=== PATIENT | female | born 1995 | race Caucasian/White ===

== ENCOUNTER 2021-03-23 18:33 | Observation (INO) | payer OTHER, SELFPAY ==
[2021-03-23 19:00] VITALS: BP 117/86; PULSE 72
[2021-03-23 19:02] VITALS: BMI 29.5
--- NOTE | 2021-03-23 19:03 | OBADM ---
This patient, Roberta Deal, admitted to the OB room OB Post 116 for observation. Patient/family oriented to hospital policies and general routines including ID bracelet, bed and alarms, visiting hours, pain management, procedures, bathroom and other care routines, personal items, smoking policy, room service/diet, and visiting hours. Patient/Family are encouraged to report perceived risks to care and to ask questions if they do not understand what they are told or what they should do.
--- NOTE | 2021-03-27 09:58 | PM.OBTRLD ---
OB - Triage/Final Diagnosis Visit Information Reason for evaluation: decreased movement Comments/Additional reasons for admission: I have assessed the risk for this patient, Roberta Deal, and determined that she would benefit from observation care.
== END 2021-03-23 19:53 | disposition home or self-care (01) ==
PROVIDERS: Admitting Provider Obstetrics & Gynecology Gynecology; Visit Provider Obstetrics & Gynecology Gynecology
DX: O36.8130 Decreased fetal movements, third trimester, not applicable or unspecified (principal); Z3A.34 34 weeks gestation of pregnancy
CPT/HCPCS: 59025; G0378; G0379

== ENCOUNTER 2021-04-19 18:22 | Inpatient (IN) | payer OTHER, SELFPAY ==
[2021-04-19] VITALS (10 sets, daily range): BP systolic 111–133; BP diastolic 73–89; PULSE 62–85; TEMP 36.4; BMI 31.0
[2021-04-19 19:25] LABS: Basophils Percent Auto 0.3 % (0.2-1.2); Hematocrit 34.2 % (37.0-47.0); Hemoglobin 11.4 g/dL (12.0-15.0); Immature Granulocyte Absolute 0.05 K/mm3 (0.00-0.031); Immature Granulocyte Percent A 0.5 % (0-0.5); Lymphocytes Absolute Auto 3.07 K/mm3 (0.9-3.2); Lymphocytes Percent Auto 29.5 % (18.3-44.2); Mean Corpuscular HGB Conc 33.3 g/dl (32-36); Mean Corpuscular Hemoglobin 28.5 pg (26-34); Mean Corpuscular Volume 85.5 fl (80-100); Mean Platelet Volume 11.4 fl (7.4-10.4); Monocytes Absolute Auto 0.7 K/mm3 (0.1-0.6); Monocytes Percent Auto 6.6 % (2.6-8.5); Neutrophils Absolute Auto 6.6 K/mm3 (1.3-6.7); Neutrophils Percent Auto 63.1 % (45.5-73.1); Platelet Count Result 254 k/mm3 (150-375); Red Cell Distribution Width 13.7 % (11.5-14.5); White Blood Count 10.4 K/mm3 (4.5-10.0)
[2021-04-19] MEDS: LACTATED RINGERS 1,000 ML 125 ML IV CONT (19:38)
[2021-04-19] MEDS: OXYTOCIN 30 UNITS/NS 500 ML 30 UNITS/500 ML BAG 6 UNITS IV CONT (23:56)
[2021-04-20] VITALS (171 sets, daily range): BP systolic 88–165; BP diastolic 38–126; PULSE 37–240; RESP 18; TEMP 36.3–37.2; O2SAT 94–100
[2021-04-20] MEDS: LACTATED RINGERS 1,000 ML 125 ML IV CONT ×2 (05:10→09:11)
[2021-04-20 07:27] LABS: Rapid Plasma Reagin Non-Reactive (NonReactive)
--- NOTE | 2021-04-20 07:43 | WPDOBADMIT ---
Obstetrics - Admit Note Admission Note: record reviewed. No pertinent additions to the history and/or any subsequent changes in the physical findings that are not consistent with the expected course of the were found. Additions to the history and/or subsequent changes in the physical findings follow. Here in labor. 5/-2 AROM with clear fluid. FHTs reactive. Continue expectant mgmt
[2021-04-20] MEDS: fentaNYL CITRATE INJ (*CRX) 100 MCG/2 ML VIAL 50 MCG IV PUSH (08:12)
--- NOTE | 2021-04-20 08:19 | P.PNAN_ITS ---
Anes - Initial Pre Proc Eval Date/Time: 04/20/21 08:19 Surgeon: Sandra Muniz MD Pre Op Diagnosis: Laboring Patient Data Age: 25 Gender: F Height: 1.63 m Weight: 82 kg Last Vital Signs Temp 36.4 C 04/20/21 06:44 Pulse 67 04/20/21 08:16 BP 162/72 H 04/20/21 08:16 Allergies Allergy/AdvReac Type Severity Reaction Status Date / Time No Known Allergies Allergy Verified 03/31/21 13:39 Home Medications Medication Instructions Recorded Confirmed Type ergocalciferol (vitamin D2) 1 unit PO WEEKLY 03/23/21 03/23/21 History prenat.vits,matthew,alk-ihty-cbieo 1 tablet PO DAILY 03/23/21 03/23/21 History Laboratory Tests 04/19/21 04/19/21 04/19/21 19:21 19:21 19:21 WBC 10.4 K/mm3 H K/mm3 (4.5-10.0) RBC 4.00 M/mm3 L M/mm3 (4.2-5.4) Hgb 11.4 g/dL L g/dL (12.0-15.0) Hct 34.2 % L % (37.0-47.0) MCV 85.5 fl fl (80-100) MCH 28.5 pg pg (26-34) MCHC 33.3 g/dl g/dl (32-36) RDW 13.7 % % (11.5-14.5) Plt Count 254 k/mm3 k/mm3 (150-375) MPV 11.4 fl H fl (7.4-10.4) Immature Gran % (Auto) 0.5 % % (0-0.5) Neut % (Auto) 63.1 % % (45.5-73.1) Lymph % (Auto) 29.5 % % (18.3-44.2) [place] % (Auto) 6.6 % % (2.6-8.5) Eos % (Auto) 0.0 % % (0-4.4) Baso % (Auto) 0.3 % % (0.2-1.2) Lymph # (Auto) 3.07 K/mm3 K/mm3 (0.9-3.2) [place] # (Auto) 0.7 K/mm3 H K/mm3 (0.1-0.6) Eos # (Auto) 0.0 K/mm3 K/mm3 (0-0.3) Baso # (Auto) 0.0 K/mm3 K/mm3 (0.0-0.1) Abs Immat Gran (auto) 0.05 K/mm3 H K/mm3 (0.00-0.031) Absolute Neuts (auto) 6.6 K/mm3 K/mm3 (1.3-6.7) Absolute Nucleated RBC 0.0 K/mm3 K/mm3 (0.0-0.012) Nucleated RBC % 0.0 % % (0.0-0.2) RPR Non-reactive (NonReactive) Blood Type B Positive Antibody Screen Negative Patient hx anesthesia problems: none Family hx anesthesia problems: none PMFSH Family History Family History Other Unknown family medical history Social History Social History Smoking status: Never smoker Substance use: never Spiritual care concerns: No Anes - Eval Final PreProcedure Day of Procedure 04/20/21 08:19 Patient weight: obese ASA classification: II Anesthesia type and monitoring: regional epidural Informed Consent: The patient's anesthetic plan and its attendant risks and benefits were discussed with the patient/family/POA. Questions were solicited and answers provided to the satisfaction of the patient/family/POA.
[2021-04-20] MEDS: AMPICILLIN 2 GM/NS 100 ML 2 GM/100 ML BAG IVPB (11:55)
--- NOTE | 2021-04-20 15:14 | PM.OBPRVD ---
OB - Delivery Note Procedure Delivery date: 04/20/21 events: No Care Induction method: none Delivery augmentation: rupture of membranes Delivery monitor: external FHT and external uterine Route of delivery: Laceration Description: Perineal - 2nd Degree (LML) Delivery repair: vicryl (3-0 vicryl) Specimen: No Quantitative Blood Loss (ml): 100 Anesthesia type: Epidural Disposition: floor [place] Baby Date of : 04/20/21 Weeks of gestation at delivery: 39 Infant gender: Male presentation: vertex position: Right Occiput Anterior Placenta delivery description: Spontaneous cord vessel description: 3 Vessels score one minute: 9 score five minutes: 9
--- NOTE | 2021-04-20 15:16 | WPDOBADMIT ---
Obstetrics - Admit Note Admission Note: record reviewed. No pertinent additions to the history and/or any subsequent changes in the physical findings that are not consistent with the expected course of the were found. Additions to the history and/or subsequent changes in the physical findings follow. Here in labor. /-2 AROM with clear fluid
--- NOTE | 2021-04-20 15:17 | PM.OBDSVD ---
DS: Admitting Diagnosis Admitting Diagnosis Admitting Diagnosis: IUP 39 wks labor DS: Discharge Diagnosis Discharge Diagnosis (1) (normal spontaneous vaginal delivery): Code(s): O80 - Encounter for full-term uncomplicated delivery Status: Acute OB - DS: Summary OB Procedures : Ultrasound OB Procedures Intrapartum: Spontaneous Vag Delivery OB Procedures: : None Peripartum Data Infant Delivery Method: Natural Vaginal Laceration Description: Perineal - 2nd Degree complications: none Status at Discharge Functional status at discharge: independent ambulation Overall status at discharge: patient is progressing back to baseline Time Spent with Patient Time attestation: Total time spent providing and/or coordinating discharge services: DS: Data Data Completed and Pending Labs on day of discharge: Labs from last 24 hours 04/19/21 04/19/21 04/19/21 19:21 19:21 19:21 WBC 10.4 H RBC 4.00 L Hgb 11.4 L Hct 34.2 L MCV 85.5 MCH 28.5 MCHC 33.3 RDW 13.7 Plt Count 254 MPV 11.4 H Immature Gran % (Auto) 0.5 Neut % (Auto) 63.1 Lymph % (Auto) 29.5 [place] % (Auto) 6.6 Eos % (Auto) 0.0 Baso % (Auto) 0.3 Lymph # (Auto) 3.07 [place] # (Auto) 0.7 H Eos # (Auto) 0.0 Baso # (Auto) 0.0 Abs Immat Gran (auto) 0.05 H Absolute Neuts (auto) 6.6 Absolute Nucleated RBC 0.0 Nucleated RBC % 0.0 RPR Non-reactive Blood Type B Positive Antibody Screen Negative Discharge Plan Discharge Attending physician on discharge: Sandra Muniz Discharging Clinician: Sandra Muniz Anticipated Discharge Date/Time: 04/22/21 15:18 Patient Disposition: Home, Self-Care Activity: may shower and pelvic rest Diet: regular Discharge Instructions: Education: Mom and Baby Guide and Preeclampsia Handout Given to: Mother Follow-Up: Call your delivering provider's office for an appointment to be seen in: 6 Weeks Mom and baby [facility] the follow-up appointment. Appointment Date/Time: April 24, 2021 at 9:00 am What to expect at your follow-up visit: Physical Assessment Call [phone] if you are unable to keep your appointment time. BREAST CARE: * Wear a snug supportive bra. * For engorgement discomfort: Breast Feeding: * Apply warm moist washcloths * Express milk as needed to relieve engorgement * Wear loose clothing * For sore nipples: * Identify correct latch-on * Apply warm moist washcloths before and after nursing * Air dry nipples after nursing * May apply Lansinoh cream to nipples EPISIOTOMY/PERINEAL CARE: * Until bleeding stops, use your gerardo bottle after urinating * Change your pad frequently throughout the day * You may take sitz baths several times a day (fill your bathtub with warm water and soak for 20 minutes.) Do NOT bathe in the water * No tub baths until seen by your physician - You may shower ACTIVITY: * Rest as much as possible. * Do not exercise or lift anything heavier than your baby (such as laundry or other children.) * Avoid stairs or driving as much as possible. * Do not put anything into the vagina. No douching, tampons, or sexual activity until seen by physician. NOTIFY PHYSICIAN IF YOU HAVE ANY QUESTIONS OR IF ANY OF THE FOLLOWING SYMPTOMS OCCUR: * If your episiotomy or stitches becomes red, swollen, or more painful than what you have experienced in the hospital. * If your vaginal bleeding becomes foul smelling. * If your vaginal bleeding becomes more heavy than a period or if your bleeding changes from pink to bright red. However, you may pass an occasional walnut-sized clot once or twice for the first week . * If you experience a sharp, shooting pain in you calves. * If you discover a hard, reddened area on your breast or if you experience flu-
[2021-04-20] MEDS: OXYTOCIN 30 UNITS/NS 500 ML 30 UNITS/500 ML BAG 125 UNITS IV CONT (15:29)
[2021-04-20] MEDS: BENZOCAINE 20% AER SPR (*SP) 56 GM CAN 1 SPRAY TOPICAL (17:04)
[2021-04-20] MEDS: WITCH HAZEL 40 PADS 1 PAD TOPICAL (17:05)
[2021-04-20] MEDS: IBUPROFEN 600 MG TABLET PO ×2 (17:08→23:30)
--- NOTE | 2021-04-20 17:59 | PC.NURSE ---
Patient transferred to post room #1759 via wheelchair. Support person present. Oriented to unit, room, information board, rooming in, admission packet and security measures. Patient verbalizes understanding.
[2021-04-21 00:03] VITALS: BP 129/80; PULSE 61; RESP 18; TEMP 36.3; O2SAT 100
[2021-04-21] MEDS: IBUPROFEN 600 MG TABLET PO (05:00)
[2021-04-21 05:21] VITALS: BP 122/65; PULSE 67; RESP 16; TEMP 36.3; O2SAT 97
[2021-04-21 05:25] LABS: Hematocrit 28.2 % (37.0-47.0); Hemoglobin 9.2 g/dL (12.0-15.0)
[2021-04-21] MEDS: MULTIVIT/MIN/PREN/FOL AC/IRON TABLET 1 TAB PO (07:38)
[2021-04-21] MEDS: POLYSACCHARIDE IRON COMPLEX 150 MG CAPSULE PO (07:38)
[2021-04-21] MEDS: DOCUSATE SODIUM 100 MG CAPSULE PO (07:38)
[2021-04-21 08:10] VITALS: BP 108/66; PULSE 76; RESP 18; TEMP 36.7; O2SAT 98
--- NOTE | 2021-04-21 09:48 | WPDANLDPN2 ---
Anes-Prog Note L&D Date/Time: 04/21/21 09:48 Comfortable throughout: labor Neuraxial method: epidural Epidural/Spinal procedure site: clean & non-tender Neuro status: Neuro function grossly intact. Cardiovascular status: normal Respiratory status: normal Airway patency: baseline Mental status: baseline Post-Op hydration status: normal Vital Signs: Last Vital Signs Temp 36.3 C L 04/21/21 05:21 Pulse 67 04/21/21 05:21 Resp 16 04/21/21 05:21 BP 122/65 04/21/21 05:21 Pulse Ox 97 04/21/21 05:21 Pain score (VAS): 0 I/O: Intake & Output 04/20/21 04/21/21 04/21/21 23:59 07:59 15:59 Output Total 78 Balance -78 Post-procedural complaints: none Patient feedback: Patient satisfied with anesthetic care.
--- NOTE | 2021-04-21 12:15 | PC.NURSE ---
Consult with pt., mother reports just completed feeding. Mother states eagerly latches with out difficulties or discomfort. Reviewed infant feeding cues, frequencies, duration of feedings, feeding elimination flow sheet, and signs of adequate intake. Demonstrated stimulation techniques to wake infant for feeding. Mother states she plans on 24 hour discharge. Requested mother call out for assessment next feeding. Reviewed transition to breast milk, signs of adequate intake, and engorgement/relief. Instructed to call ICP if intake/output less than required. Reviewed regular medications mother is taking. Information provided per Ericka. Reviewed community resources on the [employer] website and in the Mom/Baby guide. Information on outpatient services provided. Mother has no further questions at this time.
[2021-04-21 12:55] VITALS: BP 120/70; PULSE 63; RESP 18; TEMP 36.4; O2SAT 97
--- NOTE | 2021-04-21 15:55 | PC.NURSE ---
Mother called out for assist with feeding. Mother has to breast in cradle with shallow latch. Mother denies discomfort, is nursing with bottom lip rolled in. When released latch a ridge was noted to center of nipple. Reviewed positioning/alignment in cross cradle, holding breast in ?U? hold and guided asymmetrical latch on. Discussed the ratinal of holding breast for latch and during feeding to assist with maintaining deep latch for her comfort and increased intake. Infant able to latch correctly. Infant nursed eagerly, with steady draws and frequent swallowing noted. Reviewed signs of a correct latch, effective nursing and suck swallow ratio. Mother reports she can feel is latch more deeply and can feel less pulling. Demonstrated how to adjust latch more deeply while feeding. Mother reports she can feel change in latch and has no tenderness. Nipple care reviewed of lanolin after feedings, warm compresses and gel pads as needed. Suggested mother stimulate while feeding to increase stimulate, increase intake and to assist with maintaining deep latch. Instructed mother to call out for RN assistance if she is unable to latch infant for feeding or she has discomfort with nursing. Instructed feeding should be initiated three hours from start of last feeding or if feeding cues are noted before. Mother voiced understanding of information shared.
--- NOTE | 2021-04-21 16:00 | PC.NURSE ---
Patient viewed the discharge video Mother & Baby Care, The First Two Weeks . Patient was given the opportunity and encouraged to ask questions. Patient verbalized understanding of information shared and has been given the mother/baby guide for home reference.
[2021-04-21] MEDS: LANOLIN (LANSINOH) 7.5 GM CREAM 1 APPLIC TOPICAL (17:18)
[2021-04-24 09:25] VITALS: BP 132/83; PULSE 90; RESP 20; TEMP 36.7; O2SAT 100
== END 2021-04-21 18:23 | disposition home or self-care (01) | DRG 560 ==
LOC: ANHLDR 04-20 15:19 → ANHOB2 04-21 12:09 → ANHLDR 04-24 12:25 → ANHOB2 04-24 12:25
PROVIDERS: Obstetrics & Gynecology Gynecology; Admitting Provider Obstetrics & Gynecology; Visit Provider Obstetrics & Gynecology
DX: O76 Abnormality in fetal heart rate and rhythm complicating labor and delivery (principal); O70.1 Second degree perineal laceration during delivery; O63.9 Long labor, unspecified; Z3A.39 39 weeks gestation of pregnancy; Z37.0 Single live birth
CPT/HCPCS: 36415; 84112; 85014; 85018; 85025; 86592; 86850; 86900; 86901; A9270; J0290; J2590; J3010; J7120